=== PATIENT | female | born 1930 | race Caucasian/White ===

== ENCOUNTER 2019-02-18 10:13 | Emergency (ER) | payer MEDICARE, BC ==
--- NOTE | 2019-02-18 11:12 | EDM.PDOC ---
ED HPI GENERAL MEDICAL PROBLEM - General Chief Complaint: General Stated Complaint: LOW SODIUM/HIGH POTASSIUM Time Seen by Provider: 02/18/19 11:05 Source of Information: Reports: Patient, Old Records, RN History Limitations: Reports: Other (no call from any of her providers to give us background information on why she is here. ) - History of Present Illness INITIAL COMMENTS - FREE TEXT/NARRATIVE: 89 yo female went to her primary care provider yesterday for a UTI. While there she had some routine labs drawn a day early that was ordered by her billing manager at . The labs came back today suggesting elevated K and decreased Na so they called her and told her to come to the ER. Denies dizziness or a pHx of sodium or potassium issues. None of her current meds are new or new doses. Her spironolactone is on hold as of this morning per one of her providers due to this potassium elevation. Onset: Unknown/Unsure Onset Date: 02/17/19 (date of blood draw) Duration: Hour(s): (uncertain duration) Location: Reports: Generalized Quality: Reports: Other (has diffuse aches for a couple weeks, no one knows why at this point. 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 (see below) (none) Generalized Pain Score (Numeric/FACES): 5 - Related Data Allergies Allergy/AdvReac Type Severity Reaction Status Date / Time propoxyphene HCl Allergy Hives Verified 02/18/19 10:32 [From Espino[facility]] Home Meds: Home Meds Acetaminophen/HYDROcodone [[place] 325-10 MG] 1 - 2 tab PO Q6H PRN 06/26/17 [ History] Aspirin [Halfprin] 81 mg PO DAILY 06/26/17 [History] Magnesium 250 mg PO DAILY 06/26/17 [History] Multivitamin [Multi-Vitamin Daily] 1 each PO DAILY 06/26/17 [History] Simvastatin [Zocor] 40 mg PO BEDTIME 06/26/17 [History] Carvedilol [Coreg] 3.125 mg PO BID 02/18/18 [History] Furosemide [Lasix] 20 mg PO DAILY 02/18/18 [History] Lisinopril 5 mg PO DAILY 02/18/18 [History] Spironolactone [Aldactone] 25 mg PO DAILY 02/18/18 [History] Albuterol Sulfate [Proair Respiclick] 1 - 2 puff IH Q4H PRN 02/18/19 [History] Ciprofloxacin [Ciprofloxacin HCl] 250 mg PO BID 02/18/19 [History] Gabapentin [Neurontin] 1 tab PO BID 02/18/19 [History] Mirtazapine 1 tab PO BEDTIME 02/18/19 [History] Ranitidine HCl [Zantac] 300 mg PO BEDTIME 02/18/19 [History] Umeclidinium Brm/Vilanterol Tr [Anoro Ellipta 62.5-25 MCG] 1 each IH DAILY 02/18 [History] traZODone HCl [Trazodone HCl] 1 tab PO BEDTIME 02/18/19 [History] Past Medical History HEENT History: Reports: Hard of Hearing, Impaired Vision Cardiovascular History: Reports: Heart Failure, High Cholesterol, Hypertension Respiratory History: Reports: Bronchitis, Recurrent, COPD, Sleep Apnea Gastrointestinal History: Reports: GERD Genitourinary History: Reports: Chronic Renal Insuffiency, UTI, Recurrent, Other (See Below) Other Genitourinary History: Stage 3 kidney disease 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: , 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 Musculoskeletal History: Reports: Arthritis, Fracture, Other (See Below) Other Musculoskeletal History: fx ankle,wrist DDD Psychiatric History: Reports: Anxiety, Depression Hematologic History: Reports: Blood Transfusion(s) - Infectious Disease History Infectious Disease History: Reports: Chicken Pox, Measles, Mumps - Past Surgical History GI Surgical History: Reports: Colonoscopy Female Surgical History: Reports: Hysterectomy Musculoskeletal Surgical History: Reports: Joint Replacement, Knee Replacement, Other (See Below) Other Musculoskeletal Surgeries/Procedures:: Back fusion x2 Social & Family History - Tobacco Use Smoking Status *Q: Never Smoker Second Hand Smoke Exposure: No - Caffeine Use Caffeine Use: Reports: Coffee - Alcohol Use Days Per Week of Alcohol Use: 0 - Recreational Drug Use Recreational Drug Use: No ED ROS GENERAL - Review of Systems Review Of Systems: See Below Constitutional: Reports: No Symptoms HEENT: Reports: No Symptoms Respiratory: Reports: No Symptoms Cardiovascular: Reports: No Symptoms Endocrine: Reports: No Symptoms GI/Abdominal: Reports: No Symptoms : Reports: No Symptoms Musculoskeletal: Reports: Other (diffuse aches, not new) Skin: Reports: No Symptoms Neurological: Reports: No Symptoms ED EXAM, GENERAL - Physical Exam Exam: See Below Exam Limited By: No Limitations General Appearance: Alert, WD/WN, No Apparent Distress Eye Exam: Bilateral Eye: Normal Inspection Ears: Normal External Exam, Normal Canal, Hearing Grossly Normal, Normal TMs, Other (hearing aid L ear) Ear Exam: Bilateral Ear: Auricle Normal, Canal Normal, TM normal Nose: Normal Inspection, Normal Mucosa, No Blood Throat/Mouth: Normal Inspection, Normal Lips, Normal Oropharynx, Normal Voice, No Airway Compromise Head: Atraumatic, Normocephalic Neck: Normal Inspection Respiratory/Chest: No Respiratory Distress, Lungs Clear, Normal Breath Sounds, No Accessory Muscle Use Cardiovascular: Regular Rate, Rhythm, No Edema GI/Abdominal: Normal Bowel Sounds, Soft, Non-Tender, No Distention Back Exam: Normal Inspection. No: CVA Tenderness (R), CVA Tenderness (L) Extremities: Normal Inspection, Normal Range of Motion, Non-Tender, No Pedal Edema Neurological: Alert, Oriented, CN II-XII Intact, Normal Cognition, No Motor/ Sensory Deficits Psychiatric: Normal Affect, Normal Mood Skin Exam: Warm, Dry, Intact, Normal Color, No Rash Course - Vital Signs Last Recorded V/S: Last Vital Signs Temp 35.7 C 02/18/19 10:56 Pulse 61 02/18/19 12:21 Resp 13 02/18/19 12:21 BP 140/63 02/18/19 12:21 Pulse Ox 96 02/18/19 12:21 - Orders/Labs/Meds Orders: Active Orders 24 hr Category Date Time Status Cardiac Monitoring [RC] .As Directed Care 02/18/19 11:19 Active EKG Documentation Completion [RC] ASDIRECTED Care 02/18/19 11:18 Active UA W/MICROSCOPIC [URIN] Stat Lab 02/18/19 12:02 Ordered Sodium Chloride 0.9% [Normal Saline] 1,000 ml Med 02/18/19 11:30 Active IV ASDIRECTED EKG 12 Lead [EK] Routine Ther 02/18/19 11:18 Stop Req Medication Orders Sodium Chloride (Normal Saline) 1,000 mls @ 150 mls/hr IV ASDIRECTED ANJU Last Admin: 02/18/19 11:38 Dose: 150 mls/hr Labs: Laboratory Tests 02/18/19 Range/Units 11:22 Sodium 124 L (140-148) mmol/L Potassium 5.2 (3.6-5.2) mmol/L Chloride 90 L (100-108) mmol/L Carbon Dioxide 29 (21-32) mmol/L Anion Gap 10.2 (5.0-14.0) mmol/L BUN 20 H (7-18) mg/dL Creatinine 1.1 H (0.6-1.0) mg/dL Est Cr Clr Drug Dosing 35.69 mL/min Estimated GFR (MDRD) 47 L (>60) Glucose 113 H (74-106) mg/dL Calcium 8.8 (8.5-10.1) mg/dL Meds: Medications Generic Name Dose Route Start Last Admin Trade Name Freq PRN Reason Stop Dose Admin Sodium Chloride 1,000 mls @ 150 mls/hr 02/18/19 11:30 02/18/19 11:38 Normal Saline IV 150 mls/hr ASDIRECTED ANJU Administration Departure - Departure Time of Disposition: 13:00 Disposition: Home, Self-Care 01 Condition: Fair Clinical Impression: Hyponatremia - Discharge Information *PRESCRIPTION DRUG MONITORING PROGRAM REVIEWED*: No *COPY OF PRESCRIPTION DRUG MONITORING REPORT IN PATIENT GEMMA: No Instructions: Hyponatremia Referrals: Prem Velasco MD [Primary Care Provider] - Forms: ED Department Discharge Additional Instructions: Continue holding your spironolactone. Substitute a bottle of a sport drink of your choice each day for one of your glasses of water. Recheck with your doctor next week for another sodium/potassium check. Return here as needed in the interim. - My Orders Last 24 Hours: My Active Orders 02/18/19 11:18 EKG Documentation Completion [RC] ASDIRECTED EKG 12 Lead [EK] Routine 02/18/19 11:19 Cardiac Monitoring [RC] .As Directed 02/18/19 11:30 Sodium Chloride 0.9% [Normal Saline] 1,000 ml IV ASDIRECTED 02/18/19 12:02 UA W/MICROSCOPIC [URIN] Stat - Assessment/Plan Last 24 Hours: My Active Orders 02/18/19 11:18 EKG Documentation Completion [RC] ASDIRECTED EKG 12 Lead [EK] Routine 02/18/19 11:19 Cardiac Monitoring [RC] .As Directed 02/18/19 11:30 Sodium Chloride 0.9% [Normal Saline] 1,000 ml IV ASDIRECTED 02/18/19 12:02 UA W/MICROSCOPIC [URIN] Stat
[2019-02-18] MEDS ORDERED: Sodium Chloride 0.9% 1,000 ML IV SCH (11:30)
== END 2019-02-18 13:15 | disposition home or self-care (01) ==
LOC: JP.ED 10:13
DX: E87.1 Hypo-osmolality and hyponatremia (principal); I12.9 Hypertensive chronic kidney disease with stage 1 through stage 4 chronic kidney disease, or unspecified chronic kidney disease; N18.9 Chronic kidney disease, unspecified; E78.00 Pure hypercholesterolemia, unspecified; J44.9 Chronic obstructive pulmonary disease, unspecified; K21.9 Gastro-esophageal reflux disease without esophagitis; F41.9 Anxiety disorder, unspecified; F32.9 Major depressive disorder, single episode, unspecified; Z79.82 Long term (current) use of aspirin; Z79.899 Other long term (current) drug therapy; Z88.8 Allergy status to other drugs, medicaments and biological substances
CPT/HCPCS: 36415; 80048; 96360; 96361; 99283; J7030

== ENCOUNTER 2021-03-30 11:59 | Observation (INO) | payer MEDICARE, BC ==
--- NOTE | 2021-03-30 12:34 | EDM.PDOC ---
ED HPI GENERAL MEDICAL PROBLEM - General Chief Complaint: Lower Extremity Injury/Pain Stated Complaint: HURT HER LEG PEORIA Time Seen by Provider: 03/30/21 12:00 Source of Information: Reports: Patient, EMS History Limitations: Reports: No Limitations - History of Present Illness INITIAL COMMENTS - FREE TEXT/NARRATIVE: 89-year-old female who lives in a local assisted living facility, was bending forward doing some cleaning when she felt a sudden snap and significant pain in her right lower leg. She is now unable to bear weight. Onset: Sudden Duration: Minutes: Location: Reports: Lower Extremity, Right Quality: Reports: Sharp, Stabbing Worsens with: Reports: Other (Any attempt at weightbearing is painful), Movement Associated Symptoms: Reports: No Other Symptoms Left Upper Leg Pain Score (Numeric/FACES): 8 Right Leg Pain Score (Numeric/FACES): 8 - Related Data Allergies Allergy/AdvReac Type Severity Reaction Status Date / Time propoxyphene HCl Allergy Hives Verified 02/18/19 10:32 [From Espinoza] Home Meds: Home Meds Acetaminophen/HYDROcodone [[place] 325-10 MG] 1 - 2 tab PO Q6H PRN 06/26/17 [History] Aspirin [Halfprin] 81 mg PO DAILY 06/26/17 [History] Magnesium 250 mg PO DAILY 06/26/17 [History] Multivitamin [Multi-Vitamin Daily] 1 each PO DAILY 06/26/17 [History] Simvastatin [Zocor] 40 mg PO BEDTIME 06/26/17 [History] Furosemide [Lasix] 20 mg PO DAILY 02/18/18 [History] Lisinopril 5 mg PO DAILY 02/18/18 [History] Spironolactone [Aldactone] 25 mg PO DAILY 02/18/18 [History] carvediloL [Coreg] 3.125 mg PO BID 02/18/18 [History] Albuterol Sulfate [Proair Respiclick] 1 - 2 puff IH Q4H PRN 02/18/19 [History] Gabapentin [Neurontin] 100 mg PO BID 02/18/19 [History] Mirtazapine 1 tab PO BEDTIME 02/18/19 [History] Umeclidinium Brm/Vilanterol Tr [Anoro Ellipta 62.5-25 MCG] 1 each IH DAILY 02/18/19 [History] raNITIdine HCl [Zantac] 300 mg PO BEDTIME 02/18/19 [History] traZODone HCl [Trazodone HCl] 100 mg PO BEDTIME 02/18/19 [History] Past Medical History HEENT History: Reports: Hard of Hearing, Impaired Vision Cardiovascular History: Reports: Heart Failure, High Cholesterol, Hypertension Respiratory History: Reports: Bronchitis, Recurrent, COPD, Sleep Apnea Gastrointestinal History: Reports: GERD Genitourinary History: Reports: Chronic Renal Insuffiency, UTI, Recurrent, Other (See Below) Other Genitourinary History: Stage 3 kidney disease 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: , 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 Musculoskeletal History: Reports: Arthritis, Fracture, Other (See Below) Other Musculoskeletal History: fx ankle,wrist DDD Psychiatric History: Reports: Anxiety, Depression Hematologic History: Reports: Blood Transfusion(s) - Infectious Disease History Infectious Disease History: Reports: Chicken Pox, Measles, Mumps - Past Surgical History GI Surgical History: Reports: Colonoscopy Female Surgical History: Reports: Hysterectomy Musculoskeletal Surgical History: Reports: Joint Replacement, Knee Replacement, Other (See Below) Other Musculoskeletal Surgeries/Procedures:: Back fusion x2 Social & Family History - Tobacco Use Tobacco Use Status *Q: Never Tobacco User - Caffeine Use Caffeine Use: Reports: Coffee Review of Systems - Review of Systems Review Of Systems: See Below Constitutional: Denies: Fever Respiratory: Denies: Shortness of Breath Cardiovascular: Denies: Chest Pain Musculoskeletal: Denies: Neck Pain Skin: Denies: Bruising Neurological: Denies: Paresthesia Psychiatric: Reports: No Symptoms ED EXAM, GENERAL - Physical Exam Exam: See Below Exam Limited By: No Limitations General Appearance: Alert, No Apparent Distress, Anxious (Patient is anxious but not in distress while lying supine on the exam bed. She did receive some IM Dilaudid in route) Eye Exam: Bilateral Eye: Normal Inspection Head: Atraumatic Neck: Supple, Non-Tender Respiratory/Chest: Lungs Clear Cardiovascular: Regular Rate, Rhythm GI/Abdominal: Soft, Non-Tender Extremities: Other (Any palpation of the right lower extremity from just above the knee through the tib-fib area causes intense pain. She does not have pain of the lateral or medial malleolus. Any passive range of motion of the lower leg also causes intense pain.) Course - Vital Signs Last Recorded V/S: Last Vital Signs Temp 96.6 F L 07/22/21 17:30 Pulse 64 03/30/21 17:30 Resp 16 03/30/21 17:30 BP 143/85 H 03/30/21 17:30 Pulse Ox 94 L 03/30/21 17:30 - Orders/Labs/Meds Orders: Medication Orders Acetaminophen (Acetaminophen 325 Mg Tab) 650 mg PO Q4H PRN PRN Reason: Pain (Mild 1-3)/fever Hydrocodone Bitart/Acetaminophen (Acetaminophen/Hydrocodone 325-5 Mg Tab) 1 tab PO Q4H PRN PRN Reason: Pain (moderate 4-6) Aspirin (Aspirin 81 Mg Tab.Ec) 81 mg PO DAILY ANJU Carvedilol (Carvedilol 3.125 Mg Tab) 3.125 mg PO BID ANJU Enoxaparin Sodium (Enoxaparin 40 Mg/0.4 Ml Syringe) 40 mg SUBCUT DAILY ANJU Furosemide (Furosemide 20 Mg Tab) 20 mg PO DAILY ANJU Gabapentin (Gabapentin 100 Mg Cap) mg PO BID ANJU Lisinopril (Lisinopril 5 Mg Tab) 5 mg PO DAILY ANJU Morphine Sulfate (Morphine 2 Mg/Ml Syringe) 2 mg IVPUSH Q2H PRN PRN Reason: severe pain Non-Formulary Medication (Albuterol Sulfate [Proair Respiclick]) 2 puff IH Q4H PRN PRN Reason: Wheezing Non-Formulary Medication (Mirtazapine [Mirtazapine]) 1 tab PO BEDTIME ANJU Non-Formulary Medication (Magnesium [Magnesium]) 250 mg PO DAILY ANJU Non-Formulary Medication (Umeclidinium Brm/Vilanterol Tr [Anoro Ellipta 62.5-25 Mcg]) 1 each IH DAILY ANJU Non-Formulary Medication (Trazodone Hcl [Trazodone Hcl]) 1 tab PO BEDTIME ANJU Non-Formulary Medication (Simvastatin [Zocor]) 40 mg PO BEDTIME ANJU Non-Formulary Medication (Ranitidine Hcl [Zantac]) 300 mg PO BEDTIME ANJU Non-Formulary Medication (Multivitamin [Multi-Vitamin Daily]) 1 each PO DAILY ANJU Ondansetron HCl (Ondansetron 4 Mg/2 Ml Sdv) 4 mg IV Q4H PRN PRN Reason: Nausea/Vomiting Polyethylene Glycol (Polyethylene Glycol 3350 Powder 17 Gm Packet) 17 gm PO DAILY PRN PRN Reason: Constipation Sodium Chloride (Sodium Chloride 0.9% 10 Ml Syringe) 10 ml FLUSH ASDIRECTED PRN PRN Reason: Keep Vein Open Spironolactone (Spironolactone 25 Mg Tab) 25 mg PO DAILY [facility] Meds: Medications Generic Name Dose Route Start Last Admin Trade Name Freq PRN Reason Stop Dose Admin Acetaminophen 650 mg 03/30/21 17:30 Acetaminophen 325 Mg Tab PO Q4H PRN Pain (Mild 1-3)/fever Hydrocodone Bitart/Acetaminophen 1 tab 03/30/21 17:30 Acetaminophen/Hydrocodone 325-5 Mg Tab PO Q4H PRN Pain (moderate 4-6) Aspirin 81 mg 03/31/21 09:00 Aspirin 81 Mg Tab.Ec PO DAILY [facility] Carvedilol 3.125 mg 03/30/21 21:00 Carvedilol 3.125 Mg Tab PO BID [facility] Enoxaparin Sodium 40 mg 03/30/21 17:30 Enoxaparin 40 Mg/0.4 Ml Syringe SUBCUT DAILY [facility] Furosemide 20 mg 03/31/21 09:00 Furosemide 20 Mg Tab PO DAILY [facility] Gabapentin mg 03/30/21 21:00 Gabapentin 100 Mg Cap PO BID [facility] Lisinopril 5 mg 03/31/21 09:00 Lisinopril 5 Mg Tab PO DAILY [facility] Morphine Sulfate 2 mg 03/30/21 18:26 Morphine 2 Mg/Ml Syringe IVPUSH Q2H PRN severe pain Non-Formulary Medication 2 puff 03/30/21 17:30 Albuterol Sulfate [Proair Respiclick] IH Q4H PRN Wheezing Non-Formulary Medication 1 tab 03/30/21 21:00 Mirtazapine [Mirtazapine] PO BEDTIME ANJU Non-Formulary Medication 250 mg 03/31/21 09:00 Magnesium [Magnesium] PO DAILY ANJU Non-Formulary Medication 1 each 03/31/21 09:00 Umeclidinium Brm/Vilanterol Tr [Anoro Ellipta 62.5-25 Mcg] IH DAILY ANJU Non-Formulary Medication 1 tab 03/30/21 21:00 Trazodone Hcl [Trazodone Hcl] PO BEDTIME ANJU Non-Formulary Medication 40 mg 03/30/21 21:00 Simvastatin [Zocor] PO BEDTIME ANJU Non-Formulary Medication 300 mg 03/30/21 21:00 Ranitidine Hcl [Zantac] PO BEDTIME ANJU Non-Formulary Medication 1 each 03/31/21 09:00 Multivitamin [Multi-Vitamin Daily] PO DAILY ANJU Ondansetron HCl 4 mg 03/30/21 17:30 Ondansetron 4 Mg/2 Ml Sdv IV Q4H PRN Nausea/Vomiting Polyethylene Glycol 17 gm 03/30/21 17:30 Polyethylene Glycol 3350 Powder 17 Gm Packet PO DAILY PRN Constipation Sodium Chloride 10 ml 03/30/21 17:30 Sodium Chloride 0.9% 10 Ml Syringe FLUSH ASDIRECTED PRN Keep Vein Open Spironolactone 25 mg 03/31/21 09:00 Spironolactone 25 Mg Tab PO DAILY ANJU Discontinued Medications Generic Name Dose Route Start Last Admin Trade Name Freq PRN Reason Stop Dose Admin Hydrocodone Bitart/Acetaminophen 1 tab 03/30/21 15:10 03/30/21 15:13 Acetaminophen/Hydrocodone 325-10 Mg Tab PO 03/30/21 15:11 1 tab ONETIME ONE Administration - Re-Assessments/Exams Free Text/Narrative Re-Assessment/Exam: 03/30/21 12:36 A right femur and right tib-fib were ordered. 03/30/21 14:10 X-ray confirmed an old fibular fracture but a new transverse mid tibial shaft fracture with slight angulation. Consultation with orthopedics recommended a short leg splint with nonweightbearing, and recheck in the clinic in 1 week. We did consult physical therapy to evaluate the patient to see if she is able to use a walker and return home. This is pending. 03/30/21 18:43 Unfortunately after physical therapy consultation, it was deemed the patient was unsafe to go home. She will be admitted tonight by the hospitalist service, and discharge planning and social media analyst will consult tomorrow for disposition. Departure - Departure Time of Disposition: 17:26 Disposition: Admitted As Inpatient 68 Clinical Impression: Right tibial fracture Qualifiers: Encounter type: initial encounter Tibia location: shaft Fracture type: closed Fracture morphology: transverse Fracture alignment: nondisplaced Qualified Code(s): S82.224A - Nondisplaced transverse fracture of shaft of right tibia, initial encounter for closed fracture - Discharge Information Sepsis Event Note (ED) - Evaluation Sepsis Screening Result: No Definite Risk - Focused Exam Vital Signs: Vital Signs Temp Pulse Resp BP Pulse Ox 03/30/21 13:34 57 L 142/84 H 96 03/30/21 12:16 97.5 F 63 16 145/65 H 96 03/30/21 12:13 97.5 F 63 16 145/65 H 96
--- NOTE | 2021-03-30 14:07 | CR ---
Femur Min 2V Rt, Tibia Fibula Rt CLINICAL HISTORY: Pain FINDINGS: Positioning is technically less than optimal due to patient condition. Patient has a total right hip arthroplasty. Bones appear osteopenic. There are some degenerative change in the knee. Impression: Total right hip arthroplasty Osteoporosis Osteoarthritis in the knee Femur Min 2V Rt, Tibia Fibula Rt CLINICAL HISTORY: Pain FINDINGS: Patient has a transverse fracture through the mid tibia. This is nondisplaced but there is some very minimal medial bowing. There is degenerative change in the knee. There is an old healed fracture of the distal third of the fibula Impression: Nondisplaced transverse fracture mid tibia Old healed fracture distal third of the fibula.
[2021-03-30] MEDS ORDERED: Acetaminophen/HYDROcodone 325-10 MG Tab PO ONE (15:10)
--- NOTE | 2021-03-30 16:53 | PCM.HP.2 ---
H&P History of Present Illness - General Date of Service: 03/30/21 Admit Problem/Dx: Admission Diagnosis/Problem Admission Diagnosis/Problem Fracture of tibia Source of Information: Patient, Family, Provider History Limitations: Reports: No Limitations - History of Present Illness Initial Comments - Free Text/Narative: Ms. Barker is an 89-year-old woman who was admitted to observation status through the emergency department with a fracture of her right tibia. She originally hurt the leg 10 to 14 days ago and has had a hard time walking on it since that time. Today she was standing and twisted and heard a snap in her right lower leg with immediate onset of severe pain. She was brought into the emergency department for further evaluation. X-ray shows evidence of a tibial fracture. It has been splinted and she has been instructed about the importance of no weightbearing on the right leg. She is admitted to observation status as she is not able to function safely at home with her fracture and nonweightbearing. Left Upper Leg Pain Score (Numeric/FACES): 8 - Related Data Allergies/Adverse Reactions: Allergies Allergy/AdvReac Type Severity Reaction Status Date / Time propoxyphene HCl Allergy Hives Verified 02/18/19 10:32 [From [place]] Home Medications: Home Meds Acetaminophen/HYDROcodone [Moody 325-10 MG] 1 - 2 tab PO Q6H PRN 06/26/17 [History] Aspirin [Halfprin] 81 mg PO DAILY 06/26/17 [History] Magnesium 250 mg PO DAILY 06/26/17 [History] Multivitamin [Multi-Vitamin Daily] 1 each PO DAILY 06/26/17 [History] Simvastatin [Zocor] 40 mg PO BEDTIME 06/26/17 [History] Furosemide [Lasix] 20 mg PO DAILY 02/18/18 [History] Lisinopril 5 mg PO DAILY 02/18/18 [History] Spironolactone [Aldactone] 25 mg PO DAILY 02/18/18 [History] carvediloL [Coreg] 3.125 mg PO BID 02/18/18 [History] Albuterol Sulfate [Proair Respiclick] 1 - 2 puff IH Q4H PRN 02/18/19 [History] Gabapentin [Neurontin] 1 tab PO BID 02/18/19 [History] Mirtazapine 1 tab PO BEDTIME 02/18/19 [History] Umeclidinium Brm/Vilanterol Tr [Anoro Ellipta 62.5-25 MCG] 1 each IH DAILY 02/18/19 [History] raNITIdine HCl [Zantac] 300 mg PO BEDTIME 02/18/19 [History] traZODone HCl [Trazodone HCl] 100 mg PO BEDTIME 02/18/19 [History] Past Medical History HEENT History: Reports: Hard of Hearing, Impaired Vision Cardiovascular History: Reports: Heart Failure, High Cholesterol, Hypertension Respiratory History: Reports: Bronchitis, Recurrent, COPD, Sleep Apnea Gastrointestinal History: Reports: GERD Genitourinary History: Reports: Chronic Renal Insuffiency, UTI, Recurrent, Other (See Below) Other Genitourinary History: Stage 3 kidney disease PROCTOLOGIST History: Reports: , Spontaneous Musculoskeletal History: Reports: Arthritis, Fracture, Other (See Below) Other Musculoskeletal History: fx ankle,wrist DDD Psychiatric History: Reports: Anxiety, Depression Hematologic History: Reports: Blood Transfusion(s) - Infectious Disease History Infectious Disease History: Reports: Chicken Pox, Measles, Mumps - Past Surgical History GI Surgical History: Reports: Colonoscopy Female Surgical History: Reports: Hysterectomy Musculoskeletal Surgical History: Reports: Joint Replacement, Knee Replacement, Other (See Below) Other Musculoskeletal Surgeries/Procedures:: Back fusion x2 Social & Family History - Tobacco Use Tobacco Use Status *Q: Never Tobacco User - Caffeine Use Caffeine Use: Reports: Coffee H&P Review of Systems - Review of Systems: Review Of Systems: See Below General: Reports: No Symptoms HEENT: Reports: No Symptoms Pulmonary: Reports: No Symptoms Cardiovascular: Reports: No Symptoms Gastrointestinal: Reports: No Symptoms Genitourinary: Reports: No Symptoms Musculoskeletal: Reports: Leg Pain Skin: Reports: No Symptoms Psychiatric: Reports: No Symptoms Neurological: Reports: No Symptoms Hematologic/Lymphatic: Reports: No Symptoms Immunologic: Reports: No Symptoms Exam - Exam Exam: See Below - Vital Signs Vital Signs: Last Vital Signs Temp 97.5 F 03/30/21 12:16 Pulse 57 L 03/30/21 13:34 Resp 16 03/30/21 12:16 BP 142/84 H 03/30/21 13:34 Pulse Ox 96 03/30/21 13:34 Weight: 216 lb - Exam Quality Assessment: DVT Prophylaxis General: Alert, Oriented, Cooperative, Moderate Distress HEENT: Conjunctiva Clear, Hearing Intact, Mucosa Moist & [place], Normal Nasal Septum, Posterior Pharynx Clear, Pupils Equal Neck: Supple, Trachea Midline, +2 Carotid Pulse wo Bruit Lungs: Clear to Auscultation, Normal Respiratory Effort Cardiovascular: Regular Rate, Regular Rhythm, Normal S1, Normal S2. No: Systolic Murmur, Diastolic Murmur GI/Abdominal Exam: Soft, Non-Tender, No Organomegaly, No Distention Back Exam: Normal Inspection, Full Range of Motion Extremities: Pedal Edema, Leg Pain Skin: Warm, Dry, Intact Neurological: Cranial Nerves Intact, Strength Equal Bilateral, Normal Speech, Normal Tone, Sensation Intact. No: Focal Deficit Neuro Extensive - Mental Status: Alert, Oriented x3, Normal Mood/Affect, Normal Cognition, Memory Intact Sepsis Event Note - Evaluation Sepsis Screening Result: No Definite Risk - Focused Exam Vital Signs: Vital Signs Temp Pulse Resp BP Pulse Ox 03/30/21 13:34 57 L 142/84 H 96 03/30/21 12:16 97.5 F 63 16 145/65 H 96 03/30/21 12:13 97.5 F 63 16 145/65 H 96 *Q Meaningful Use (ADM) - VTE Risk Assess *Q Each Risk Factor Represents 1 Point: Swollen Legs, Current, Obesity ( BMI > 25 kg/m2), Congestive heart failure (CHF) Total Score 1 Point Risk Factors: 3 Each Risk Factor Represents 2 Points: None Total Score 2 Point Risk Factors: 0 Each Risk Factor Represents 3 Points: Age 75 Years or Greater Total Score 3 Point Risk Factors: 3 Each Risk Factor Represents 5 Points: Hip, Pelvis or Leg Fracture, Less than 1 month Total Score 5 Point Risk Factors: 5 Venous Thromboembolism Risk Factor Score *Q: 11 Problem List Initiated/Reviewed/Updated: Yes Orders Last 24hrs: Active Orders 24 hr Category Date Time Status Patient Status Manage Transfer [TRANSFER] Routine ADT 03/30/21 16:44 Ordered Consult to Physical Therapy [PT Evaluation and Cons 03/30/21 13:37 Active Treatment] [CONS] Routine Resuscitation Status Routine Resus Stat 03/30/21 16:49 Ordered Assessment/Plan Comment:: ASSESSMENT AND PLAN RIGHT TIBIA FRACTURE-initial injury probably 1 to 2 weeks ago. Since then the leg has been very sore and difficult to walk on. Today she twisted on the leg and heard a snapping sound with immediate severe pain. -Splint to right lower leg -No weightbearing right leg -Orthopedic follow-up in the clinic 1 week -Pain medication as needed -Physical therapy consult -Will likely require retirement placement CONGESTIVE HEART FAILURE-well compensated -Continue outpatient medications MAINTENANCE ISSUES -DVT prophylaxis; Lovenox 40 mg subcu daily -GI prophylaxis; continue outpatient H2 darlene therapy -Rosas catheter; not indicated -Nutrition; low-sodium diet -Nicotine dependence; not required CODE STATUS-DNR/DNI ADMISSION STATUS-this patient will be admitted to observation status, expect no more than a one night hospital stay for evaluation and management of problems as outlined above. DISPOSITION-anticipate discharge to home after the hospital stay. PRIMARY CARE PROVIDER-Dr. Velasco - Mortality Measure Prognosis:: Good
[2021-03-30] MEDS ORDERED: Sodium Chloride 0.9% 10 ML Syringe FLUSH PRN (17:30)
[2021-03-30] MEDS ORDERED: Enoxaparin 30 MG/0.3 ML Syringe SUBCUT SCH (17:30)
[2021-03-30] MEDS ORDERED: Ondansetron 4 MG/2 ML SDV IV PRN (17:30)
[2021-03-30] MEDS ORDERED: Acetaminophen 325 MG Tab PO PRN (17:30)
[2021-03-30] MEDS ORDERED: Polyethylene Glycol 3350 Powder 17 GM Packet PO PRN (17:30)
[2021-03-30] MEDS ORDERED: Morphine 2 MG/ML SYRINGE IVPUSH PRN (18:26)
[2021-03-30] MEDS: Acetaminophen/HYDROcodone 325-5 MG Tab PO PRN (20:13)
[2021-03-30] MEDS ORDERED: Non-Formulary Medication 1 Each PO ONE (20:55)
[2021-03-30] MEDS ORDERED: MIRTAZAPINE PO SCH (21:00)
[2021-03-30] MEDS ORDERED: TRAZODONE HCL PO SCH (21:00)
[2021-03-30] MEDS ORDERED: Non-Formulary Medication 1 Each (Simvastatin [Zocor] 40 MG Tablet) PO SCH (21:00)
[2021-03-30] MEDS ORDERED: RANITIDINE HCL 300 MG PO SCH (21:00)
[2021-03-30] MEDS ORDERED: amLODIPine 5 MG Tab PO ONE (21:30)
[2021-03-30] MEDS ORDERED: Furosemide 20 MG Tab PO ONE (21:45)
[2021-03-30] MEDS ORDERED: DULoxetine 30 MG Cap PO ONE (21:45)
[2021-03-30] MEDS ORDERED: traZODone 50 MG Tab PO ONE (22:00)
[2021-03-30] MEDS ORDERED: Gabapentin 100 MG Cap PO ONE (22:00)
[2021-03-30] MEDS ORDERED: Mirtazapine 15 MG Tab PO ONE (22:00)
[2021-03-30] MEDS ORDERED: Carvedilol 3.125 MG Tab PO ONE (22:00)
[2021-03-31] MEDS: Acetaminophen/HYDROcodone 325-5 MG Tab PO PRN ×3 (08:09→17:23)
[2021-03-31] MEDS ORDERED: Furosemide 20 MG Tab PO SCH (09:00)
[2021-03-31] MEDS ORDERED: Multivitamins with Iron/Calcium/Folic Acid/Minerals Tab PO SCH (09:00)
[2021-03-31] MEDS ORDERED: Aspirin 81 MG Tab.EC PO SCH (09:00)
[2021-03-31] MEDS ORDERED: Non-Formulary Medication 1 Each (Multivitamin [Multi-Vitamin Daily] 1 EACH Tablet) PO SCH (09:00)
[2021-03-31] MEDS ORDERED: Spironolactone 25 MG Tab PO SCH (09:00)
[2021-03-31] MEDS ORDERED: Magnesium Oxide 400 MG Tab PO SCH (09:00)
[2021-03-31] MEDS ORDERED: Non-Formulary Medication 1 Each (Magnesium [Magnesium] 250 MG Tablet) PO SCH (09:00)
[2021-03-31] MEDS ORDERED: Lisinopril 5 MG Tab PO SCH (09:00)
[2021-03-31] MEDS ORDERED: Gabapentin 100 MG Cap PO SCH (09:00)
--- NOTE | 2021-03-31 12:57 | PCM.PN ---
- General Info Date of Service: 03/31/21 Subjective Update: Ms. Barker has been stable overnight and reports pain control has been adequate. Functional Status: Reports: Pain Controlled, Tolerating Diet, Urinating. Denies: Ambulating - Review of Systems General: Reports: No Symptoms Pulmonary: Reports: No Symptoms Cardiovascular: Reports: No Symptoms Gastrointestinal: Reports: No Symptoms Musculoskeletal: Reports: Leg Pain - Patient Data Vitals - Most Recent: Last Vital Signs Temp 96.2 F L 03/31/21 10:51 Pulse 87 03/31/21 10:51 Resp 16 03/31/21 10:51 BP 156/66 H 03/31/21 10:51 Pulse Ox 98 03/31/21 10:51 Weight - Most Recent: 224 lb 0.011 oz I&O - Last 24 Hours: Intake & Output 03/30/21 03/31/21 03/31/21 22:59 06:59 14:59 Intake Total 240 Balance 240 Lab Results Last 24 Hours: Laboratory Results - last 24 hr 03/30/21 Range/Units 18:29 Sodium 136 L (140-148) mmol/L Potassium 4.3 (3.6-5.2) mmol/L Chloride 100 (100-108) mmol/L Carbon Dioxide 32 (21-32) mmol/L Anion Gap 8.3 (5.0-14.0) mmol/L BUN 22 H (7-18) mg/dL Creatinine 1.1 H (0.6-1.0) mg/dL Est Cr Clr Drug Dosing 33.72 mL/min Estimated GFR (MDRD) 47 L (>60) Glucose 130 H (74-106) mg/dL Calcium 9.0 (8.5-10.1) mg/dL Med Orders - Current: Current Medications Acetaminophen (Acetaminophen 325 Mg Tab) 650 mg PO Q4H PRN PRN Reason: Pain (Mild 1-3)/fever Hydrocodone Bitart/Acetaminophen (Acetaminophen/Hydrocodone 325-5 Mg Tab) 1 tab PO Q4H PRN PRN Reason: Pain (moderate 4-6) Last Admin: 03/31/21 12:22 Dose: 1 tab Documented by: Aspirin (Aspirin 81 Mg Tab.Ec) 81 mg PO DAILY ANJU Last Admin: 03/31/21 08:11 Dose: 81 mg Documented by: Carvedilol (Carvedilol 3.125 Mg Tab) 3.125 mg PO BID ANJU Enoxaparin Sodium (Enoxaparin 30 Mg/0.3 Ml Syringe) 30 mg SUBCUT Q24H ANJU Furosemide (Furosemide 20 Mg Tab) 20 mg PO DAILY ANJU Gabapentin (Gabapentin 100 Mg Cap) 100 mg PO BID ANJU Lisinopril (Lisinopril 5 Mg Tab) 5 mg PO DAILY ANJU Magnesium Oxide (Magnesium Oxide 400 Mg Tab) 400 mg PO DAILY ANJU Last Admin: 03/31/21 08:11 Dose: 400 mg Documented by: Morphine Sulfate (Morphine 2 Mg/Ml Syringe) 2 mg IVPUSH Q2H PRN PRN Reason: severe pain Last Admin: 03/30/21 19:09 Dose: 2 mg Documented by: Multivitamins/Minerals (Multivitamins With Iron/Calcium/Folic Acid/Minerals Tab) 1 tab PO DAILY [facility] Last Admin: 03/31/21 08:11 Dose: 1 tab Documented by: Non-Formulary Medication (Albuterol Sulfate [Proair Respiclick]) 2 puff IH Q4H PRN PRN Reason: Wheezing Non-Formulary Medication (Mirtazapine [Mirtazapine]) 1 tab PO BEDTIME ANJU Non-Formulary Medication (Umeclidinium Brm/Vilanterol Tr [Anoro Ellipta 62.5-25 Mcg]) 1 each IH DAILY [facility] Non-Formulary Medication (Simvastatin [Zocor]) 40 mg PO BEDTIME ANJU Ondansetron HCl (Ondansetron 4 Mg/2 Ml Sdv) 4 mg IV Q4H PRN PRN Reason: Nausea/Vomiting Polyethylene Glycol (Polyethylene Glycol 3350 Powder 17 Gm Packet) 17 gm PO DAILY PRN PRN Reason: Constipation Sodium Chloride (Sodium Chloride 0.9% 10 Ml Syringe) 10 ml FLUSH ASDIRECTED PRN PRN Reason: Keep Vein Open Spironolactone (Spironolactone 25 Mg Tab) 25 mg PO DAILY [facility] Trazodone HCl (Trazodone 50 Mg Tab) 100 mg PO BEDTIME [facility] Discontinued Medications Hydrocodone Bitart/Acetaminophen (Acetaminophen/Hydrocodone 325-10 Mg Tab) 1 tab PO ONETIME ONE Stop: 03/30/21 15:11 Last Admin: 03/30/21 15:13 Dose: 1 tab Documented by: Amlodipine Besylate (Amlodipine 5 Mg Tab) 5 mg PO NOW ONE Stop: 03/30/21 21:31 Last Admin: 03/30/21 21:51 Dose: Not Given Documented by: Carvedilol (Carvedilol 3.125 Mg Tab) 3.125 mg PO NOW ONE Stop: 03/30/21 22:01 Last Admin: 03/30/21 22:26 Dose: Not Given Documented by: Duloxetine HCl (Duloxetine 30 Mg Cap) 60 mg PO ONETIME ONE Stop: 03/30/21 21:46 Last Admin: 03/30/21 21:52 Dose: Not Given Documented by: Enoxaparin Sodium (Enoxaparin 30 Mg/0.3 Ml Syringe) 30 mg SUBCUT DAILY ANJU Last Admin: 03/30/21 21:57 Dose: 30 mg Documented by: Furosemide (Furosemide 20 Mg Tab) 20 mg PO ONETIME ONE Stop: 03/30/21 21:46 Last Admin: 03/30/21 21:52 Dose: Not Given Documented by: Gabapentin (Gabapentin 100 Mg Cap) 100 mg PO NOW ONE Stop: 03/30/21 22:01 Last Admin: 03/30/21 22:26 Dose: Not Given Documented by: Mirtazapine (Mirtazapine 15 Mg Tab) 45 mg PO NOW ONE Stop: 03/30/21 22:01 Last Admin: 03/30/21 22:26 Dose: Not Given Documented by: Non-Formulary Medication (Non-Formulary Medication 1 Each) 1 each PO ONETIME ONE Stop: 03/30/21 20:56 Last Admin: 03/30/21 21:51 Dose: Not Given Documented by: Trazodone HCl (Trazodone 50 Mg Tab) 100 mg PO NOW ONE Stop: 03/30/21 22:01 Last Admin: 03/30/21 22:26 Dose: Not Given Documented by: - Exam Quality Assessment: DVT Prophylaxis General: Alert, Oriented, Cooperative, Mild Distress Lungs: Clear to Auscultation, Normal Respiratory Effort Cardiovascular: Regular Rate, Regular Rhythm, No Murmurs GI/Abdominal Exam: Soft, Non-Tender, No Organomegaly, No Distention Extremities: Leg Pain - Patient Data Lab Results Last 24 hrs: Laboratory Results - last 24 hr 03/30/21 Range/Units 18:29 Sodium 136 L (140-148) mmol/L Potassium 4.3 (3.6-5.2) mmol/L Chloride 100 (100-108) mmol/L Carbon Dioxide 32 (21-32) mmol/L Anion Gap 8.3 (5.0-14.0) mmol/L BUN 22 H (7-18) mg/dL Creatinine 1.1 H (0.6-1.0) mg/dL Est Cr Clr Drug Dosing 33.72 mL/min Estimated GFR (MDRD) 47 L (>60) Glucose 130 H (74-106) mg/dL Calcium 9.0 (8.5-10.1) mg/dL Result Diagrams: 03/30/21 18:29 Sepsis Event Note - Evaluation Sepsis Screening Result: No Definite Risk - Focused Exam Vital Signs: Vital Signs Temp Temp Pulse Resp BP Pulse Ox 03/31/21 10:51 96.2 F L 87 16 156/66 H 98 03/31/21 07:25 96.5 F L 66 16 142/60 H 93 L 03/31/21 03:00 97.3 F 63 16 131/54 L 95 - Problem List Review Problem List Initiated/Reviewed/Updated: Yes - My Orders Last 24 Hours: My Active Orders 03/30/21 Lunch 2 Gram Sodium Diet [DIET] 03/30/21 17:29 Resuscitation Status Routine 03/30/21 17:30 Acetaminophen [TylenoL] 650 mg PO Q4H PRN Acetaminophen/HYDROcodone [[place] 325-5 MG] 1 tab PO Q4H PRN Albuterol Sulfate [Proair Respiclick] 2 puff IH Q4H PRN Ondansetron [Zofran] 4 mg IV Q4H PRN Sodium Chloride 0.9% [Saline Flush] 10 ml FLUSH ASDIRECTED PRN polyethylene glycoL 3350 [MiraLAX] 17 gm PO DAILY PRN 03/30/21 17:30 Patient Status [ADT] Routine Ambulate [RC] QID Height and Weight [RC] 0500 Intake and Output [RC] QSHIFT Notify Provider Vital Signs [RC] ASDIRECTED Oxygen Therapy [RC] PRN Peripheral IV Care [RC] . DIRECTED Up to Chair [RC] QID VTE/DVT Education [RC] Per Unit Routine Vital Signs [RC] Q4H PT Evaluation and Treatment [CONS] Routine Peripheral IV Insertion Adult [OM.PC] Routine 03/30/21 21:00 Mirtazapine [Mirtazapine] 1 tab PO BEDTIME Simvastatin [Zocor] 40 mg PO BEDTIME 03/31/21 09:00 Aspirin [Halfprin] 81 mg PO DAILY Furosemide [Lasix] 20 mg PO DAILY Gabapentin [Neurontin] 100 mg PO BID Magnesium Oxide 400 mg PO DAILY Multivitamins w-Iron/Ca/FA/Min [Thera M Plus] 1 tab PO DAILY Spironolactone [Aldactone] 25 mg PO DAILY Umeclidinium Brm/Vilanterol Tr [Anoro Ellipta 62.5-25 MCG] 1 each IH DAILY carvediloL [Coreg] 3.125 mg PO BID lisinopriL [Prinivil] 5 mg PO DAILY 03/31/21 20:00 Enoxaparin [Lovenox] 30 mg SUBCUT Q24H 03/31/21 21:00 traZODone 100 mg PO BEDTIME - Plan Plan:: ASSESSMENT AND PLAN RIGHT TIBIA FRACTURE-stable since admission -Splint to right lower leg -No weightbearing right leg -Orthopedic follow-up in the clinic 1 week -Pain medication as needed -Physical therapy consult -Awaiting half-way placement CONGESTIVE HEART FAILURE-well compensated -Continue outpatient medications MAINTENANCE ISSUES -DVT prophylaxis; Lovenox 40 mg subcu daily -GI prophylaxis; continue outpatient H2 darlene therapy -Rosas catheter; not indicated -Nutrition; low-sodium diet -Nicotine dependence; not required CODE STATUS-DNR/DNI ADMISSION STATUS-this patient will be admitted to observation status, expect no more than a one night hospital stay for evaluation and management of problems as outlined above. DISPOSITION-anticipate discharge to home after the hospital stay. PRIMARY CARE PROVIDER-Dr. Velasco
[2021-03-31] MEDS: Carvedilol 3.125 MG Tab PO SCH ×2 (13:47→20:53)
[2021-03-31] MEDS ORDERED: Albuterol 8 GM Inhaler INH PRN (14:26)
[2021-03-31] MEDS ORDERED: Metoprolol Succinate 50 MG Tab.ER PO ONE (15:15)
[2021-03-31] MEDS: ANORO ELLIPTA INH SCH (16:53)
[2021-03-31] MEDS: Gabapentin 100 MG Cap (PTOM) PO SCH (17:22)
[2021-03-31] MEDS: Famotidine 20 MG Tab (PTOM) PO SCH (17:22)
[2021-03-31] MEDS: Furosemide 20 MG Tab (PTOM) PO SCH (17:22)
[2021-03-31] MEDS: SIMVASTATIN 40 MG PO SCH (17:23)
[2021-03-31] MEDS: Enoxaparin 30 MG/0.3 ML Syringe SUBCUT SCH (20:51)
[2021-03-31] MEDS: AMLODIPINE 5 MG PO SCH (20:52)
[2021-03-31] MEDS: TRAZODONE 100 MG PO SCH (20:52)
[2021-03-31] MEDS: DULOXETINE 60 MG PO SCH (20:52)
[2021-03-31] MEDS: MIRTAZAPINE 45 MG PO SCH (20:53)
[2021-03-31] MEDS ORDERED: traZODone 50 MG Tab PO SCH (21:00)
[2021-04-01] MEDS: Acetaminophen/HYDROcodone 325-5 MG Tab PO PRN ×3 (08:58→19:48)
[2021-04-01] MEDS: Aspirin 81 MG Tab.EC (PTOM) PO SCH (09:00)
[2021-04-01] MEDS: Furosemide 20 MG Tab (PTOM) PO SCH ×2 (09:00→14:27)
[2021-04-01] MEDS: Gabapentin 100 MG Cap (PTOM) PO SCH ×2 (09:00→14:27)
[2021-04-01] MEDS: MAG OX PO SCH (09:01)
[2021-04-01] MEDS: Famotidine 20 MG Tab (PTOM) PO SCH ×2 (09:01→14:26)
[2021-04-01] MEDS: CERTAVITE SENIOR PO SCH (09:01)
--- NOTE | 2021-04-01 10:03 | PCM.PN ---
- General Info Date of Service: 04/01/21 Subjective Update: Ms. Barker has been stable since yesterday. She reports less pain in her leg related to the fracture. She has been working with physical therapy daily on [employer] and [place]. Functional Status: Reports: Tolerating Diet, Urinating - Review of Systems General: Reports: No Symptoms Pulmonary: Reports: No Symptoms Cardiovascular: Reports: No Symptoms Gastrointestinal: Reports: No Symptoms Musculoskeletal: Reports: Leg Pain - Patient Data Vitals - Most Recent: Last Vital Signs Temp 96.5 F L 04/01/21 08:56 Pulse 82 04/01/21 09:01 Resp 16 04/01/21 08:56 BP 125/62 04/01/21 09:01 Pulse Ox 94 L 04/01/21 08:56 Weight - Most Recent: 223 lb 11.2 oz I&O - Last 24 Hours: Intake & Output 03/31/21 04/01/21 04/01/21 22:59 06:59 14:59 Intake Total 800 400 Balance 800 400 Med Orders - Current: Current Medications Acetaminophen (Acetaminophen 325 Mg Tab) 650 mg PO Q4H PRN PRN Reason: Pain (Mild 1-3)/fever Hydrocodone Bitart/Acetaminophen (Acetaminophen/Hydrocodone 325-5 Mg Tab) 1 tab PO Q4H PRN PRN Reason: Pain (moderate 4-6) Last Admin: 04/01/21 08:58 Dose: 1 tab Documented by: Albuterol (Albuterol 8 Gm Inhaler) 0 gm INH Q4H PRN PRN Reason: WHEEZING Amlodipine Besylate (Amlodipine 5 Mg Tab (Ptom) 5 mg PO BEDTIME [facility] Last Admin: 03/31/21 20:52 Dose: 5 mg Documented by: Aspirin (Aspirin 81 Mg Tab.Ec (Ptom)) 81 mg PO DAILY [facility] Last Admin: 04/01/21 09:00 Dose: 81 mg Documented by: Enoxaparin Sodium (Enoxaparin 30 Mg/0.3 Ml Syringe) 30 mg SUBCUT Q24H [facility] Last Admin: 03/31/21 20:51 Dose: 30 mg Documented by: Famotidine (Famotidine 20 Mg Tab (Ptom)) 20 mg PO BID@0800,1500 [facility] Last Admin: 04/01/21 09:01 Dose: 20 mg Documented by: Furosemide (Furosemide 20 Mg Tab (Ptom)) 20 mg PO BID@0800,1500 [facility] Last Admin: 04/01/21 09:00 Dose: 20 mg Documented by: Gabapentin (Gabapentin 100 Mg Cap (Ptom)) 100 mg PO BID@0800,1500 [facility] Last Admin: 04/01/21 09:00 Dose: 100 mg Documented by: Metoprolol Succinate (Metoprolol Succinate 50 Mg Tab.Er (Ptom)) 50 mg PO DAILY@0800 [facility] Last Admin: 04/01/21 09:01 Dose: 50 mg Documented by: Morphine Sulfate (Morphine 2 Mg/Ml Syringe) 2 mg IVPUSH Q2H PRN PRN Reason: severe pain Last Admin: 03/30/21 19:09 Dose: 2 mg Documented by: Anoro Ellipta 62.5- 25 Mcg Inhaler (Ptom ) 0 each INH DAILYRT [facility] Last Admin: 03/31/21 16:53 Dose: Not Given Documented by: Ondansetron HCl (Ondansetron 4 Mg/2 Ml Sdv) 4 mg IV Q4H PRN PRN Reason: Nausea/Vomiting Duloxetine Dr 60mg (Cap (Ptom)) 1 each PO BEDTIME [facility] Last Admin: 03/31/21 20:52 Dose: 1 each Documented by: Trazodone 100mg Tab ((Ptom)) 1 each PO BEDTIME [facility] Last Admin: 03/31/21 20:52 Dose: 1 each Documented by: Mirtazapine 45mg Tab ((Ptom)) 1 each PO BEDTIME [facility] Last Admin: 03/31/21 20:53 Dose: 1 each Documented by: Simvastatin 40mg Tab ((Ptom)) 1 each PO DAILY@1500 [facility] Last Admin: 03/31/21 17:23 Dose: 1 each Documented by: Rupertote ( (Ptom)) 1 each PO DAILY@0800 [facility] Last Admin: 04/01/21 09:01 Dose: 1 each Documented by: Mag Ox 250mg Tab ( (Ptom)) 1 each PO DAILY@0800 [facility] Last Admin: 04/01/21 09:01 Dose: 1 each Documented by: Polyethylene Glycol (Polyethylene Glycol 3350 Powder 17 Gm Packet) 17 gm PO DAILY PRN PRN Reason: Constipation Sodium Chloride (Sodium Chloride 0.9% 10 Ml Syringe) 10 ml FLUSH ASDIRECTED PRN PRN Reason: Keep Vein Open Discontinued Medications Hydrocodone Bitart/Acetaminophen (Acetaminophen/Hydrocodone 325-10 Mg Tab) 1 tab PO ONETIME ONE Stop: 03/30/21 15:11 Last Admin: 03/30/21 15:13 Dose: 1 tab Documented by: Amlodipine Besylate (Amlodipine 5 Mg Tab) 5 mg PO NOW ONE Stop: 03/30/21 21:31 Last Admin: 03/30/21 21:51 Dose: Not Given Documented by: Aspirin (Aspirin 81 Mg Tab.Ec) 81 mg PO DAILY [facility] Last Admin: 03/31/21 08:11 Dose: 81 mg Documented by: Carvedilol (Carvedilol 3.125 Mg Tab) 3.125 mg PO BID [facility] Stop: 03/31/21 21:01 Last Admin: 03/31/21 20:53 Dose: 3.125 mg Documented by: Carvedilol (Carvedilol 3.125 Mg Tab) 3.125 mg PO NOW ONE Stop: 03/30/21 22:01 Last Admin: 03/30/21 22:26 Dose: Not Given Documented by: Duloxetine HCl (Duloxetine 30 Mg Cap) 60 mg PO ONETIME ONE Stop: 03/30/21 21:46 Last Admin: 03/30/21 21:52 Dose: Not Given Documented by: Enoxaparin Sodium (Enoxaparin 30 Mg/0.3 Ml Syringe) 30 mg SUBCUT DAILY [facility] Last Admin: 03/30/21 21:57 Dose: 30 mg Documented by: Furosemide (Furosemide 20 Mg Tab) 20 mg PO DAILY [facility] Last Admin: 03/31/21 13:48 Dose: 20 mg Documented by: Furosemide (Furosemide 20 Mg Tab) 20 mg PO ONETIME ONE Stop: 03/30/21 21:46 Last Admin: 03/30/21 21:52 Dose: Not Given Documented by: Gabapentin (Gabapentin 100 Mg Cap) 100 mg PO BID [facility] Last Admin: 03/31/21 13:47 Dose: 100 mg Documented by: Gabapentin (Gabapentin 100 Mg Cap) 100 mg PO NOW ONE Stop: 03/30/21 22:01 Last Admin: 03/30/21 22:26 Dose: Not Given Documented by: Lisinopril (Lisinopril 5 Mg Tab) 5 mg PO DAILY [facility] Last Admin: 03/31/21 13:47 Dose: 5 mg Documented by: Magnesium Oxide (Magnesium Oxide 400 Mg Tab) 400 mg PO DAILY [facility] Last Admin: 03/31/21 08:11 Dose: 400 mg Documented by: Mirtazapine (Mirtazapine 15 Mg Tab) 45 mg PO NOW ONE Stop: 03/30/21 22:01 Last Admin: 03/30/21 22:26 Dose: Not Given Documented by: Multivitamins/Minerals (Multivitamins With Iron/Calcium/Folic Acid/Minerals Tab) 1 tab PO DAILY [facility] Last Admin: 03/31/21 08:11 Dose: 1 tab Documented by: Non-Formulary Medication (Non-Formulary Medication 1 Each) 1 each PO ONETIME ONE Stop: 03/30/21 20:56 Last Admin: 03/30/21 21:51 Dose: Not Given Documented by: Spironolactone (Spironolactone 25 Mg Tab) 25 mg PO DAILY [facility] Last Admin: 03/31/21 13:48 Dose: 25 mg Documented by: Trazodone HCl (Trazodone 50 Mg Tab) 100 mg PO NOW ONE Stop: 03/30/21 22:01 Last Admin: 03/30/21 22:26 Dose: Not Given Documented by: Trazodone HCl (Trazodone 50 Mg Tab) 100 mg PO BEDTIME [facility] Last Admin: 03/31/21 20:52 Dose: Not Given Documented by: - Exam Quality Assessment: DVT Prophylaxis General: Alert, Oriented, Cooperative, Mild Distress Lungs: Clear to Auscultation, Normal Respiratory Effort Cardiovascular: Regular Rate, Regular Rhythm, No Murmurs GI/Abdominal Exam: Soft, Non-Tender, No Organomegaly, No Distention Extremities: Leg Pain - Patient Data Result Diagrams: 03/30/21 18:29 Sepsis Event Note - Evaluation Sepsis Screening Result: No Definite Risk - Focused Exam Vital Signs: Vital Signs Temp Temp Pulse Pulse Resp BP BP 04/01/21 09:01 82 125/62 04/01/21 08:56 96.5 F L 76 16 125/62 04/01/21 03:00 95.7 F L 66 18 138/65 04/01/21 02:00 97.2 F 63 16 135/58 L Pulse Ox 04/01/21 09:01 04/01/21 08:56 94 L 04/01/21 03:00 95 04/01/21 02:00 97 - Problem List Review Problem List Initiated/Reviewed/Updated: Yes - My Orders Last 24 Hours: My Active Orders 03/31/21 14:26 Albuterol [Ventolin HFA] 0 gm INH Q4H PRN 03/31/21 17:00 Famotidine [Pepcid] 20 mg PO BID@0800,1500 Furosemide [Lasix] 20 mg PO BID@0800,1500 Gabapentin [Neurontin] 100 mg PO BID@0800,1500 Patient's Own Medication [Ptom] 1 each PO DAILY@1500 03/31/21 20:00 Enoxaparin [Lovenox] 30 mg SUBCUT Q24H 03/31/21 21:00 Patient's Own Medication [Ptom] 1 each PO BEDTIME Patient's Own Medication [Ptom] 1 each PO BEDTIME Patient's Own Medication [Ptom] 1 each PO BEDTIME amLODIPine [Norvasc] 5 mg PO BEDTIME 04/01/21 08:00 Metoprolol Succinate [Toprol XL] 50 mg PO DAILY@0800 Patient's Own Medication [Ptom] 1 each PO DAILY@0800 Patient's Own Medication [Ptom] 1 each PO DAILY@0800 04/01/21 09:00 Aspirin [Halfprin] 81 mg PO DAILY - Plan Plan:: ASSESSMENT AND PLAN RIGHT TIBIA FRACTURE-stable since admission -Splint to right lower leg -No weightbearing right leg -Orthopedic follow-up in the clinic 1 week -Pain medication as needed -Physical therapy consult -Awaiting [facility] placement on Saturday CONGESTIVE HEART FAILURE-well compensated -Continue outpatient medications MAINTENANCE ISSUES -DVT prophylaxis; Lovenox 40 mg subcu daily -GI prophylaxis; continue outpatient H2 darlene therapy -Rosas catheter; not indicated -Nutrition; low-sodium diet -Nicotine dependence; not required CODE STATUS-DNR/DNI ADMISSION STATUS-this patient will be admitted to observation status, expect no more than a one night hospital stay for evaluation and management of problems as outlined above. DISPOSITION-anticipate discharge to [facility] on Saturday PRIMARY CARE PROVIDER-Dr. Velasco
[2021-04-01] MEDS: ANORO ELLIPTA INH SCH (10:59)
[2021-04-01] MEDS: SIMVASTATIN 40 MG PO SCH (14:26)
[2021-04-01] MEDS: Enoxaparin 30 MG/0.3 ML Syringe SUBCUT SCH (20:16)
[2021-04-01] MEDS: TRAZODONE 100 MG PO SCH (20:16)
[2021-04-01] MEDS: MIRTAZAPINE 45 MG PO SCH (20:16)
[2021-04-01] MEDS: DULOXETINE 60 MG PO SCH (20:16)
[2021-04-01] MEDS: AMLODIPINE 5 MG PO SCH (20:17)
[2021-04-02] MEDS: MAG OX PO SCH (08:33)
[2021-04-02] MEDS: Aspirin 81 MG Tab.EC (PTOM) PO SCH (08:34)
[2021-04-02] MEDS: CERTAVITE SENIOR PO SCH (08:34)
[2021-04-02] MEDS: Gabapentin 100 MG Cap (PTOM) PO SCH ×2 (08:34→16:19)
[2021-04-02] MEDS: Famotidine 20 MG Tab (PTOM) PO SCH ×2 (08:34→16:19)
[2021-04-02] MEDS: Furosemide 20 MG Tab (PTOM) PO SCH ×2 (08:34→16:19)
[2021-04-02] MEDS: Acetaminophen/HYDROcodone 325-5 MG Tab PO PRN ×2 (08:34→16:23)
[2021-04-02] MEDS: ANORO ELLIPTA INH SCH (08:35)
--- NOTE | 2021-04-02 10:35 | PCM.PN ---
- General Info Date of Service: 04/02/21 Subjective Update: Ms. Barker has been stable over the last 24 hours. Pain control has been adequate and she is hemodynamically stable. Functional Status: Reports: Tolerating Diet, Urinating - Review of Systems General: Reports: No Symptoms Pulmonary: Reports: No Symptoms Cardiovascular: Reports: No Symptoms Gastrointestinal: Reports: No Symptoms Musculoskeletal: Reports: Leg Pain - Patient Data Vitals - Most Recent: Last Vital Signs Temp 96.5 F L 04/02/21 08:43 Pulse 69 04/02/21 08:43 Resp 16 04/02/21 08:43 BP 136/57 L 04/02/21 08:43 Pulse Ox 94 L 04/02/21 08:43 Weight - Most Recent: 220 lb 8 oz Med Orders - Current: Current Medications Acetaminophen (Acetaminophen 325 Mg Tab) 650 mg PO Q4H PRN PRN Reason: Pain (Mild 1-3)/fever Hydrocodone Bitart/Acetaminophen (Acetaminophen/Hydrocodone 325-5 Mg Tab) 1 tab PO Q4H PRN PRN Reason: Pain (moderate 4-6) Last Admin: 04/02/21 08:34 Dose: 1 tab Documented by: Albuterol (Albuterol 8 Gm Inhaler) 0 gm INH Q4H PRN PRN Reason: WHEEZING Amlodipine Besylate (Amlodipine 5 Mg Tab (Ptom) 5 mg PO BEDTIME [facility] Last Admin: 04/01/21 20:17 Dose: 5 mg Documented by: Aspirin (Aspirin 81 Mg Tab.Ec (Ptom)) 81 mg PO DAILY [facility] Last Admin: 04/02/21 08:34 Dose: 81 mg Documented by: Enoxaparin Sodium (Enoxaparin 30 Mg/0.3 Ml Syringe) 30 mg SUBCUT Q24H [facility] Last Admin: 04/01/21 20:16 Dose: 30 mg Documented by: Famotidine (Famotidine 20 Mg Tab (Ptom)) 20 mg PO BID@0800,1500 [facility] [place] Last Admin: 04/02/21 08:34 Dose: 20 mg Documented by: Furosemide (Furosemide 20 Mg Tab (Ptom)) 20 mg PO BID@0800,1500 [facility] [place] Last Admin: 04/02/21 08:34 Dose: 20 mg Documented by: Gabapentin (Gabapentin 100 Mg Cap (Ptom)) 100 mg PO BID@0800,1500 [facility] [place] Last Admin: 04/02/21 08:34 Dose: 100 mg Documented by: Metoprolol Succinate (Metoprolol Succinate 50 Mg Tab.Er (Ptom)) 50 mg PO DAILY@0800 [facility] Last Admin: 04/02/21 08:33 Dose: 50 mg Documented by: Morphine Sulfate (Morphine 2 Mg/Ml Syringe) 2 mg IVPUSH Q2H PRN PRN Reason: severe pain Last Admin: 03/30/21 19:09 Dose: 2 mg Documented by: Anoro Ellipta 62.5- 25 Mcg Inhaler (Ptom ) 0 each INH DAILYRT [facility] Last Admin: 04/02/21 08:35 Dose: Not Given Documented by: Ondansetron HCl (Ondansetron 4 Mg/2 Ml Sdv) 4 mg IV Q4H PRN PRN Reason: Nausea/Vomiting Duloxetine Dr 60mg (Cap (Ptom)) 1 each PO BEDTIME [facility] Last Admin: 04/01/21 20:16 Dose: 1 each Documented by: Trazodone 100mg Tab ((Ptom)) 1 each PO BEDTIME [facility] Last Admin: 04/01/21 20:16 Dose: 1 each Documented by: Mirtazapine 45mg Tab ((Ptom)) 1 each PO BEDTIME [facility] Last Admin: 04/01/21 20:16 Dose: 1 each Documented by: Simvastatin 40mg Tab ((Ptom)) 1 each PO DAILY@1500 [facility] Last Admin: 04/01/21 14:26 Dose: 1 each Documented by: Analisa Springer ( (Ptom)) 1 each PO DAILY@0800 [facility] Last Admin: 04/02/21 08:34 Dose: 1 each Documented by: Mag Ox 250mg Tab ( (Ptom)) 1 each PO DAILY@0800 [facility] Last Admin: 04/02/21 08:33 Dose: 1 each Documented by: Polyethylene Glycol (Polyethylene Glycol 3350 Powder 17 Gm Packet) 17 gm PO DAILY PRN PRN Reason: Constipation Sodium Chloride (Sodium Chloride 0.9% 10 Ml Syringe) 10 ml FLUSH ASDIRECTED PRN PRN Reason: Keep Vein Open Discontinued Medications Hydrocodone Bitart/Acetaminophen (Acetaminophen/Hydrocodone 325-10 Mg Tab) 1 tab PO ONETIME ONE Stop: 03/30/21 15:11 Last Admin: 03/30/21 15:13 Dose: 1 tab Documented by: Amlodipine Besylate (Amlodipine 5 Mg Tab) 5 mg PO NOW ONE Stop: 03/30/21 21:31 Last Admin: 03/30/21 21:51 Dose: Not Given Documented by: Aspirin (Aspirin 81 Mg Tab.Ec) 81 mg PO DAILY [facility] [place] Last Admin: 03/31/21 08:11 Dose: 81 mg Documented by: Carvedilol (Carvedilol 3.125 Mg Tab) 3.125 mg PO BID [facility] Stop: 03/31/21 21:01 Last Admin: 03/31/21 20:53 Dose: 3.125 mg Documented by: Carvedilol (Carvedilol 3.125 Mg Tab) 3.125 mg PO NOW ONE Stop: 03/30/21 22:01 Last Admin: 03/30/21 22:26 Dose: Not Given Documented by: Duloxetine HCl (Duloxetine 30 Mg Cap) 60 mg PO ONETIME ONE Stop: 03/30/21 21:46 Last Admin: 03/30/21 21:52 Dose: Not Given Documented by: Enoxaparin Sodium (Enoxaparin 30 Mg/0.3 Ml Syringe) 30 mg SUBCUT DAILY [facility] [place] Last Admin: 03/30/21 21:57 Dose: 30 mg Documented by: Furosemide (Furosemide 20 Mg Tab) 20 mg PO DAILY [facility] Last Admin: 03/31/21 13:48 Dose: 20 mg Documented by: Furosemide (Furosemide 20 Mg Tab) 20 mg PO ONETIME ONE Stop: 03/30/21 21:46 Last Admin: 03/30/21 21:52 Dose: Not Given Documented by: Gabapentin (Gabapentin 100 Mg Cap) 100 mg PO BID [facility] Last Admin: 03/31/21 13:47 Dose: 100 mg Documented by: Gabapentin (Gabapentin 100 Mg Cap) 100 mg PO NOW ONE Stop: 03/30/21 22:01 Last Admin: 03/30/21 22:26 Dose: Not Given Documented by: Lisinopril (Lisinopril 5 Mg Tab) 5 mg PO DAILY [facility] Last Admin: 03/31/21 13:47 Dose: 5 mg Documented by: Magnesium Oxide (Magnesium Oxide 400 Mg Tab) 400 mg PO DAILY [facility] Last Admin: 03/31/21 08:11 Dose: 400 mg Documented by: Mirtazapine (Mirtazapine 15 Mg Tab) 45 mg PO NOW ONE Stop: 03/30/21 22:01 Last Admin: 03/30/21 22:26 Dose: Not Given Documented by: Multivitamins/Minerals (Multivitamins With Iron/Calcium/Folic Acid/Minerals Tab) 1 tab PO DAILY [facility] [place] Last Admin: 03/31/21 08:11 Dose: 1 tab Documented by: Non-Formulary Medication (Non-Formulary Medication 1 Each) 1 each PO ONETIME ONE Stop: 03/30/21 20:56 Last Admin: 03/30/21 21:51 Dose: Not Given Documented by: Spironolactone (Spironolactone 25 Mg Tab) 25 mg PO DAILY [facility] [place] Last Admin: 03/31/21 13:48 Dose: 25 mg Documented by: Trazodone HCl (Trazodone 50 Mg Tab) 100 mg PO NOW ONE Stop: 03/30/21 22:01 Last Admin: 03/30/21 22:26 Dose: Not Given Documented by: Trazodone HCl (Trazodone 50 Mg Tab) 100 mg PO BEDTIME [facility] [place] Last Admin: 03/31/21 20:52 Dose: Not Given Documented by: - Exam Quality Assessment: DVT Prophylaxis General: Alert, Oriented, Cooperative, Mild Distress Lungs: Clear to Auscultation, Normal Respiratory Effort Cardiovascular: Regular Rate, Regular Rhythm, No Murmurs GI/Abdominal Exam: Soft, Non-Tender, No Organomegaly, No Distention Extremities: Leg Pain - Patient Data Result Diagrams: 03/30/21 18:29 Sepsis Event Note - Evaluation Sepsis Screening Result: No Definite Risk - Focused Exam Vital Signs: Vital Signs Temp Temp Pulse Pulse Resp BP BP 04/02/21 08:43 96.5 F L 69 16 136/57 L 04/02/21 08:33 81 120/61 04/02/21 07:34 16 04/02/21 03:00 97.4 F 60 16 124/61 04/01/21 22:37 96 F L 65 14 143/59 H Pulse Ox 04/02/21 08:43 94 L 04/02/21 08:33 04/02/21 07:34 04/02/21 03:00 95 04/01/21 22:37 96 - Problem List Review Problem List Initiated/Reviewed/Updated: Yes - Plan Plan:: ASSESSMENT AND PLAN RIGHT TIBIA FRACTURE-stable since admission -Splint to right lower leg -No weightbearing right leg -Orthopedic follow-up in the clinic 1 week -Pain medication as needed -Physical therapy consult -Awaiting shelter placement on Saturday CONGESTIVE HEART FAILURE-well compensated -Continue outpatient medications MAINTENANCE ISSUES -DVT prophylaxis; Lovenox 40 mg subcu daily -GI prophylaxis; continue outpatient H2 darlene therapy -Rosas catheter; not indicated -Nutrition; low-sodium diet -Nicotine dependence; not required CODE STATUS-DNR/DNI ADMISSION STATUS-this patient will be admitted to observation status, expect no more than a one night hospital stay for evaluation and management of problems as outlined above. DISPOSITION-anticipate discharge to shelter on Saturday PRIMARY CARE PROVIDER-Dr. Velasco
--- NOTE | 2021-04-02 10:53 | PCM.DCSUM1 ---
Discharge Summary - Hospital Course Brief History: Ms. Barker is an 89-year-old woman who was admitted to observation status through the emergency department with right lower leg pain secondary to a right tibial fracture. - Discharge Data Discharge Date: 04/03/21 Discharge Disposition: Home, Self-Care 01 Condition: Fair - Referral to Home Health Primary Care Physician: Prem Velasco MD - Discharge Diagnosis/Problem(s) (1) Right tibial fracture SNOMED Code(s): 74292947, 25436474463404227 ICD Code: S82.201A - UNSP FRACTURE OF SHAFT OF RIGHT TIBIA, INIT FOR CLOS FX Status: Acute Current Visit: Yes Qualifiers: Encounter type: initial encounter Tibia location: shaft Fracture type: closed Fracture morphology: transverse Fracture alignment: nondisplaced Qualified Code(s): S82.224A - Nondisplaced transverse fracture of shaft of right tibia, initial encounter for closed fracture (2) MARELY (obstructive sleep apnea) SNOMED Code(s): 49993722 ICD Code: G47.33 - OBSTRUCTIVE SLEEP APNEA (ADULT) (PEDIATRIC) Status: Chronic Current Visit: No (3) COPD (chronic obstructive pulmonary disease) SNOMED Code(s): 24259348 ICD Code: J44.9 - CHRONIC OBSTRUCTIVE PULMONARY DISEASE, UNSPECIFIED Status: Chronic Current Visit: No (4) CKD (chronic kidney disease) stage 3, GFR 30-59 ml/min SNOMED Code(s): 665250993 ICD Code: N18.30 - CHRONIC KIDNEY DISEASE, STAGE 3 UNSPECIFIED Status: Chronic Current Visit: No - Patient Summary/Data Consults: Consultations 03/30/21 17:30 PT Evaluation and Treatment [CONS] Routine Please Evaluate and Treat. PT Reason for Consult: Right tibial fracture This query below is only for informational purposes and is not editable. Hospital Course: Ms. Barker is an 89-year-old woman who was admitted to observation status through the emergency department with a fracture of her right tibia. She originally hurt the leg 10 to 14 days ago and has had a hard time walking on it since that time. On the day of admission she was standing and twisted and heard a snap in her right lower leg with immediate onset of severe pain. She was brought into the emergency department for further evaluation. X-ray shows evidence of a tibial fracture. It has been splinted and she has been instructed about the importance of no weightbearing on the right leg. She is admitted to observation status as she is not able to function safely at home with her fracture and nonweightbearing. Over the first night she was given IV fluids for hydration, fluids were then discontinued. She was seen by physical therapy during her hospitalization. She remained stable with good pain control throughout the duration of her hospital stay. [facility] as she is unable to care for herself at home given her nonweightbearing status. She will remain nonweightbearing on the right leg until seen for follow-up appointment with Dr. John. Appointment will be scheduled with Dr. John for April 06. She will resume her usual diet. - Patient Instructions Diet: Usual Diet as Tolerated Activity: Non Weight Bearing (Right leg) Other/Special Instructions: Please schedule orthopedic consult with Dr. John for April 06. Daily physical therapy and Occupational Therapy [facility] the [facility]. - Discharge Plan *PRESCRIPTION DRUG MONITORING PROGRAM REVIEWED*: Not Applicable *COPY OF PRESCRIPTION DRUG MONITORING REPORT IN PATIENT GEMMA: Not Applicable Prescriptions/Med Rec: Hydrocodone/Acetaminophen [Lorcet 5-325 mg Tablet] 1 each PO Q4H #20 tablet Home Medications: Home Meds Aspirin [Halfprin] 81 mg PO DAILY 06/26/17 [History] Magnesium 250 mg PO DAILY 06/26/17 [History] Multivitamin [Multi-Vitamin Daily] 1 each PO DAILY 06/26/17 [History] Furosemide [Lasix] 20 mg PO BID 02/18/18 [History] Albuterol Sulfate [Proair Respiclick] 1 - 2 puff IH Q4H PRN 02/18/19 [History] Gabapentin [Neurontin] 100 mg PO BID 02/18/19 [History] Umeclidinium Brm/Vilanterol Tr [Anoro Ellipta 62.5-25 MCG] 1 each IH DAILY 02/18/19 [History] Famotidine 20 mg PO BID 03/31/21 [History] Metoprolol Succinate [Toprol Xl] 50 mg PO DAILY 03/31/21 [History] amLODIPine [Norvasc] 5 mg PO BEDTIME 03/31/21 [History] Hydrocodone/Acetaminophen [Lorcet 5-325 mg Tablet] 1 each PO Q4H #20 tablet 04/02/21 [Rx] Patient Handouts: Tibial Fracture, Adult, [id number] Referrals: Prem Velasco MD [Primary Care Provider] - - Discharge Summary/Plan Comment DC Time >30 min.: No - Patient Data Vitals - Most Recent: Last Vital Signs Temp 96.5 F L 04/02/21 08:43 Pulse 69 04/02/21 08:43 Resp 16 04/02/21 08:43 BP 136/57 L 04/02/21 08:43 Pulse Ox 94 L 04/02/21 08:43 Weight - Most Recent: 220 lb 8 oz Med Orders - Current: Current Medications Acetaminophen (Acetaminophen 325 Mg Tab) 650 mg PO Q4H PRN PRN Reason: Pain (Mild 1-3)/fever Hydrocodone Bitart/Acetaminophen (Acetaminophen/Hydrocodone 325-5 Mg Tab) 1 tab PO Q4H PRN PRN Reason: Pain (moderate 4-6) Last Admin: 04/02/21 08:34 Dose: 1 tab Documented by: Albuterol (Albuterol 8 Gm Inhaler) 0 gm INH Q4H PRN PRN Reason: WHEEZING Amlodipine Besylate (Amlodipine 5 Mg Tab (Ptom) 5 mg PO BEDTIME [facility] Last Admin: 04/01/21 20:17 Dose: 5 mg Documented by: Aspirin (Aspirin 81 Mg Tab.Ec (Ptom)) 81 mg PO DAILY [facility] Last Admin: 04/02/21 08:34 Dose: 81 mg Documented by: Enoxaparin Sodium (Enoxaparin 30 Mg/0.3 Ml Syringe) 30 mg SUBCUT Q24H [facility] Last Admin: 04/01/21 20:16 Dose: 30 mg Documented by: Famotidine (Famotidine 20 Mg Tab (Ptom)) 20 mg PO BID@0800,1500 [facility] Last Admin: 04/02/21 08:34 Dose: 20 mg Documented by: Furosemide (Furosemide 20 Mg Tab (Ptom)) 20 mg PO BID@0800,1500 [facility] Last Admin: 04/02/21 08:34 Dose: 20 mg Documented by: Gabapentin (Gabapentin 100 Mg Cap (Ptom)) 100 mg PO BID@0800,1500 [facility] Last Admin: 04/02/21 08:34 Dose: 100 mg Documented by: Metoprolol Succinate (Metoprolol Succinate 50 Mg Tab.Er (Ptom)) 50 mg PO DAILY@0800 [facility] Last Admin: 04/02/21 08:33 Dose: 50 mg Documented by: Morphine Sulfate (Morphine 2 Mg/Ml Syringe) 2 mg IVPUSH Q2H PRN PRN Reason: severe pain Last Admin: 03/30/21 19:09 Dose: 2 mg Documented by: Anoro Ellipta 62.5- 25 Mcg Inhaler (Ptom ) 0 each INH DAILYRT [facility] Last Admin: 04/02/21 08:35 Dose: Not Given Documented by: Ondansetron HCl (Ondansetron 4 Mg/2 Ml Sdv) 4 mg IV Q4H PRN PRN Reason: Nausea/Vomiting Duloxetine Dr 60mg (Cap (Ptom)) 1 each PO BEDTIME [facility] Last Admin: 04/01/21 20:16 Dose: 1 each Documented by: Trazodone 100mg Tab ((Ptom)) 1 each PO BEDTIME [facility] Last Admin: 04/01/21 20:16 Dose: 1 each Documented by: Mirtazapine 45mg Tab ((Ptom)) 1 each PO BEDTIME [facility] Last Admin: 04/01/21 20:16 Dose: 1 each Documented by: Simvastatin 40mg Tab ((Ptom)) 1 each PO DAILY@1500 [facility] Last Admin: 04/01/21 14:26 Dose: 1 each Documented by: Analisa Springer ( (Ptom)) 1 each PO DAILY@0800 [facility] Last Admin: 04/02/21 08:34 Dose: 1 each Documented by: Mag Ox 250mg Tab ( (Ptom)) 1 each PO DAILY@0800 [facility] Last Admin: 04/02/21 08:33 Dose: 1 each Documented by: Polyethylene Glycol (Polyethylene Glycol 3350 Powder 17 Gm Packet) 17 gm PO DAILY PRN PRN Reason: Constipation Sodium Chloride (Sodium Chloride 0.9% 10 Ml Syringe) 10 ml FLUSH ASDIRECTED PRN PRN Reason: Keep Vein Open Discontinued Medications Hydrocodone Bitart/Acetaminophen (Acetaminophen/Hydrocodone 325-10 Mg Tab) 1 tab PO ONETIME ONE Stop: 03/30/21 15:11 Last Admin: 03/30/21 15:13 Dose: 1 tab Documented by: Amlodipine Besylate (Amlodipine 5 Mg Tab) 5 mg PO NOW ONE Stop: 03/30/21 21:31 Last Admin: 03/30/21 21:51 Dose: Not Given Documented by: Aspirin (Aspirin 81 Mg Tab.Ec) 81 mg PO DAILY [facility] Last Admin: 03/31/21 08:11 Dose: 81 mg Documented by: Carvedilol (Carvedilol 3.125 Mg Tab) 3.125 mg PO BID [facility] Stop: 03/31/21 21:01 Last Admin: 03/31/21 20:53 Dose: 3.125 mg Documented by: Carvedilol (Carvedilol 3.125 Mg Tab) 3.125 mg PO NOW ONE Stop: 03/30/21 22:01 Last Admin: 03/30/21 22:26 Dose: Not Given Documented by: Duloxetine HCl (Duloxetine 30 Mg Cap) 60 mg PO ONETIME ONE Stop: 03/30/21 21:46 Last Admin: 03/30/21 21:52 Dose: Not Given Documented by: Enoxaparin Sodium (Enoxaparin 30 Mg/0.3 Ml Syringe) 30 mg SUBCUT DAILY [facility] Last Admin: 03/30/21 21:57 Dose: 30 mg Documented by: Furosemide (Furosemide 20 Mg Tab) 20 mg PO DAILY [facility] Last Admin: 03/31/21 13:48 Dose: 20 mg Documented by: Furosemide (Furosemide 20 Mg Tab) 20 mg PO ONETIME ONE Stop: 03/30/21 21:46 Last Admin: 03/30/21 21:52 Dose: Not Given Documented by: Gabapentin (Gabapentin 100 Mg Cap) 100 mg PO BID [facility] Last Admin: 03/31/21 13:47 Dose: 100 mg Documented by: Gabapentin (Gabapentin 100 Mg Cap) 100 mg PO NOW ONE Stop: 03/30/21 22:01 Last Admin: 03/30/21 22:26 Dose: Not Given Documented by: Lisinopril (Lisinopril 5 Mg Tab) 5 mg PO DAILY [facility] Last Admin: 03/31/21 13:47 Dose: 5 mg Documented by: Magnesium Oxide (Magnesium Oxide 400 Mg Tab) 400 mg PO DAILY [facility] Last Admin: 03/31/21 08:11 Dose: 400 mg Documented by: Mirtazapine (Mirtazapine 15 Mg Tab) 45 mg PO NOW ONE Stop: 03/30/21 22:01 Last Admin: 03/30/21 22:26 Dose: Not Given Documented by: Multivitamins/Minerals (Multivitamins With Iron/Calcium/Folic Acid/Minerals Tab) 1 tab PO DAILY [facility] Last Admin: 03/31/21 08:11 Dose: 1 tab Documented by: Non-Formulary Medication (Non-Formulary Medication 1 Each) 1 each PO ONETIME ONE Stop: 03/30/21 20:56 Last Admin: 03/30/21 21:51 Dose: Not Given Documented by: Spironolactone (Spironolactone 25 Mg Tab) 25 mg PO DAILY [facility] Last Admin: 03/31/21 13:48 Dose: 25 mg Documented by: Trazodone HCl (Trazodone 50 Mg Tab) 100 mg PO NOW ONE Stop: 03/30/21 22:01 Last Admin: 03/30/21 22:26 Dose: Not Given Documented by: Trazodone HCl (Trazodone 50 Mg Tab) 100 mg PO BEDTIME [facility] Last Admin: 03/31/21 20:52 Dose: Not Given Documented by: - Exam General: Reports: Alert, Oriented, Cooperative, Mild Distress Lungs: Reports: Clear to Auscultation, Normal Respiratory Effort Cardiovascular: Reports: Regular Rate, Regular Rhythm, No Murmurs GI/Abdominal Exam: Soft, Non-Tender, No Organomegaly, No Distention Extremities: Leg Pain
[2021-04-02] MEDS: SIMVASTATIN 40 MG PO SCH (16:19)
[2021-04-02] MEDS: Enoxaparin 30 MG/0.3 ML Syringe SUBCUT SCH (20:30)
[2021-04-02] MEDS: DULOXETINE 60 MG PO SCH (20:30)
[2021-04-02] MEDS: MIRTAZAPINE 45 MG PO SCH (20:30)
[2021-04-02] MEDS: TRAZODONE 100 MG PO SCH (20:30)
[2021-04-02] MEDS: AMLODIPINE 5 MG PO SCH (20:30)
[2021-04-03] MEDS: Furosemide 20 MG Tab (PTOM) PO SCH (07:57)
[2021-04-03] MEDS: ANORO ELLIPTA INH SCH (07:57)
[2021-04-03] MEDS: Famotidine 20 MG Tab (PTOM) PO SCH (07:59)
[2021-04-03] MEDS: Gabapentin 100 MG Cap (PTOM) PO SCH (07:59)
[2021-04-03] MEDS: CERTAVITE SENIOR PO SCH (08:00)
[2021-04-03] MEDS: Aspirin 81 MG Tab.EC (PTOM) PO SCH (08:00)
[2021-04-03] MEDS: MAG OX PO SCH (08:01)
[2021-04-03] MEDS: Acetaminophen/HYDROcodone 325-5 MG Tab PO PRN (08:05)
== END 2021-04-03 12:16 | disposition home or self-care (01) ==
LOC: JP.ED 11:59 → JP.MS 16:44
PROVIDERS: ADMIT Hospitalist; ATTEND Hospitalist
DX: S82.201A Unspecified fracture of shaft of right tibia, initial encounter for closed fracture (principal); E78.00 Pure hypercholesterolemia, unspecified; J44.9 Chronic obstructive pulmonary disease, unspecified; I12.9 Hypertensive chronic kidney disease with stage 1 through stage 4 chronic kidney disease, or unspecified chronic kidney disease; N18.30 Chronic kidney disease, stage 3 unspecified; G47.33 Obstructive sleep apnea (adult) (pediatric); Z88.8 Allergy status to other drugs, medicaments and biological substances; Z79.899 Other long term (current) drug therapy; Z79.82 Long term (current) use of aspirin; Z98.890 Other specified postprocedural states; Z98.1 Arthrodesis status
CPT/HCPCS: 36415; 73552; 73590; 80048; 97110; 97116; 97162; 97530; 97535; A9270; J1650; J2270

== ENCOUNTER 2021-04-05 21:37 | Emergency (ER) | payer MEDICARE, BC ==
--- NOTE | 2021-04-05 21:57 | EDM.PDOC ---
ED HPI GENERAL MEDICAL PROBLEM - General Chief Complaint: General Stated Complaint: LOW LEVELS Time Seen by Provider: 04/05/21 21:39 Source of Information: Reports: Patient, Fpc Records, Provider History Limitations: Reports: No Limitations - History of Present Illness INITIAL COMMENTS - FREE TEXT/NARRATIVE: Sandra is an 89-year-old female presenting to the ED for evaluation of hyponatremia and hypokalemia. The patient lives at [facility] in [place]. She had labs today and her nurse practitioner called to send the patient in for reevaluation. It appears that her basic metabolic profile today showed a sodium less than 100 and a potassium of 2.1. The nurse practitioner reports that there is no way to be able to check those labs again at the [facility] and felt that the patient should be brought in by ambulance for recheck of her labs. The patient is alert, oriented, and in no acute distress other than a frontal headache that started this evening. Patient has not taken anything for pain to this point. She denies any other new symptoms. - Related Data Allergies Allergy/AdvReac Type Severity Reaction Status Date / Time propoxyphene HCl Allergy Hives Verified 02/18/19 10:32 [From [facility]] Home Meds: Home Meds Aspirin [Halfprin] 81 mg PO DAILY 06/26/17 [History] Magnesium 250 mg PO DAILY 06/26/17 [History] Multivitamin [Multi-Vitamin Daily] 1 each PO DAILY 06/26/17 [History] Furosemide [Lasix] 20 mg PO BID 02/18/18 [History] Albuterol Sulfate [Proair Respiclick] 1 - 2 puff IH Q4H PRN 02/18/19 [History] Gabapentin [Neurontin] 100 mg PO BID 02/18/19 [History] Umeclidinium Brm/Vilanterol Tr [Anoro Ellipta 62.5-25 MCG] 1 each IH DAILY 02/18/19 [History] Famotidine 20 mg PO BID 03/31/21 [History] Metoprolol Succinate [Toprol Xl] 50 mg PO DAILY 03/31/21 [History] amLODIPine [Norvasc] 5 mg PO BEDTIME 03/31/21 [History] Hydrocodone/Acetaminophen [Lorcet 5-325 mg Tablet] 1 each PO Q4H #20 tablet 04/02/21 [Rx] Past Medical History HEENT History: Reports: Hard of Hearing, Impaired Vision Cardiovascular History: Reports: Heart Failure, High Cholesterol, Hypertension Respiratory History: Reports: Bronchitis, Recurrent, COPD, Sleep Apnea Gastrointestinal History: Reports: GERD Genitourinary History: Reports: Chronic Renal Insuffiency, UTI, Recurrent, Other (See Below) Other Genitourinary History: Stage 3 kidney disease 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: , 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 Musculoskeletal History: Reports: Arthritis, Fracture, Other (See Below) Other Musculoskeletal History: fx ankle,wrist DDD, tib/fib fx 03/30/21 Psychiatric History: Reports: Anxiety, Depression Hematologic History: Reports: Blood Transfusion(s) - Infectious Disease History Infectious Disease History: Reports: Chicken Pox, Measles, Mumps - Past Surgical History GI Surgical History: Reports: Colonoscopy Female Surgical History: Reports: Hysterectomy Musculoskeletal Surgical History: Reports: Joint Replacement, Knee Replacement, Other (See Below) Other Musculoskeletal Surgeries/Procedures:: Back fusion x2 Social & Family History - Caffeine Use Caffeine Use: Reports: Coffee ED ROS GENERAL - Review of Systems Review Of Systems: See Below Constitutional: Reports: No Symptoms HEENT: Reports: No Symptoms Respiratory: Reports: No Symptoms Cardiovascular: Reports: No Symptoms Endocrine: Reports: No Symptoms GI/Abdominal: Reports: No Symptoms : Reports: No Symptoms Musculoskeletal: Reports: No Symptoms Skin: Reports: No Symptoms Neurological: Reports: Headache Psychiatric: Reports: No Symptoms Hematologic/Lymphatic: Reports: No Symptoms Immunologic: Reports: No Symptoms ED EXAM, GENERAL - Physical Exam Exam: See Below Exam Limited By: No Limitations General Appearance: Alert, No Apparent Distress Eye Exam: Bilateral Eye: EOMI, PERRL Head: Atraumatic, Normocephalic Neck: Normal Inspection Respiratory/Chest: No Respiratory Distress, Lungs Clear, Normal Breath Sounds Cardiovascular: Normal Peripheral Pulses, Regular Rate, Rhythm, No Murmur Peripheral Pulses: 2+: Radial (L), Radial (R) GI/Abdominal: Normal Bowel Sounds, Soft, Non-Tender Neurological: Alert, Oriented, Normal Cognition, No Motor/Sensory Deficits Psychiatric: Normal Affect, Anxious Skin Exam: Warm, Dry Course - Vital Signs Last Recorded V/S: Last Vital Signs Temp 36.4 C 04/05/21 21:59 Pulse 65 04/05/21 21:59 Resp 16 04/05/21 21:59 BP 157/62 H 04/05/21 21:59 Pulse Ox 96 04/05/21 21:59 - Orders/Labs/Meds Labs: Laboratory Tests 04/05/21 Range/Units 21:50 Sodium 137 L (140-148) mmol/L Potassium 3.6 (3.6-5.2) mmol/L Chloride 99 L (100-108) mmol/L Carbon Dioxide 33 H (21-32) mmol/L Anion Gap 8.6 (5.0-14.0) mmol/L BUN 25 H (7-18) mg/dL Creatinine 1.2 H (0.6-1.0) mg/dL Est Cr Clr Drug Dosing 31.48 mL/min Estimated GFR (MDRD) 42 L (>60) Glucose 143 H (74-106) mg/dL Calcium 8.6 (8.5-10.1) mg/dL Magnesium 2.1 (1.8-2.4) mg/dL - Re-Assessments/Exams Free Text/Narrative Re-Assessment/Exam: 04/05/21 22:20 a basic metabolic and magnesium were rechecked. The patient sodium is 137, potassium 3.6, chloride of 99 with a bicarbonate of 33, BUN of 25 with a creatinine of 1.2 and a glucose of 143. Her magnesium is 2.1. Patient does not have labs that were reported to the nurse practitioner earlier with the sodium less than 100 and a potassium of 2.1. At this time she is suitable for discharge back to the [facility] in [place]. We will have EMS transport her back to the facility. Departure - Departure Time of Disposition: 22:21 Disposition: Home, Self-Care 01 Clinical Impression: Abnormal laboratory test result - Discharge Information Referrals: Prem Velasco MD [Primary Care Provider] - Forms: ED Department Discharge Care Plan Goals: Good luck with your orthopedic casting tomorrow. Your labs today look wonderful despite what was reported earlier at the assisted living. Sepsis Event Note (ED) - Focused Exam Vital Signs: Vital Signs Temp Pulse Resp BP Pulse Ox 04/05/21 21:59 36.4 C 65 16 157/62 H 96 04/05/21 21:47 36.4 C 65 16 157/62 H 96 - Problem List & Annotations (1) Abnormal laboratory test result SNOMED Code(s): 158631007 Code(s): R89.9 - UNSP ABNORMAL FINDING IN SPECIMENS FROM OTH ORG/TISS Status: Acute Priority: Low Current Visit: Yes - Problem List Review Problem List Initiated/Reviewed/Updated: Yes
[2021-04-05] MEDS ORDERED: Acetaminophen 325 MG Tab PO ONE (22:23)
== END 2021-04-05 22:56 | disposition home or self-care (01) ==
LOC: JP.ED 21:37
DX: E87.1 Hypo-osmolality and hyponatremia (principal); E87.6 Hypokalemia; R94.4 Abnormal results of kidney function studies; R79.89 Other specified abnormal findings of blood chemistry; E78.00 Pure hypercholesterolemia, unspecified; I13.0 Hypertensive heart and chronic kidney disease with heart failure and stage 1 through stage 4 chronic kidney disease, or unspecified chronic kidney disease; N18.30 Chronic kidney disease, stage 3 unspecified; I50.9 Heart failure, unspecified; K21.9 Gastro-esophageal reflux disease without esophagitis; Z88.5 Allergy status to narcotic agent; Z79.82 Long term (current) use of aspirin; Z79.899 Other long term (current) drug therapy
CPT/HCPCS: 36415; 80048; 83735; 99283; A9270